=== PATIENT | female | born 1985 | race Caucasian/White ===

== ENCOUNTER 2022-02-16 21:44 | Emergency (ER) | payer BC, OTHER ==
[2022-02-16 22:09] VITALS: BP 124/82; PULSE 99; TEMP 98.4; BMI 26.6
[2022-02-16] MEDS ORDERED: DIPHTH,PERTUSS(ACELL),TET 0.5 ML DISP.SYRIN IM ONE ×2 (22:26)
[2022-02-16] MEDS ORDERED: AMOX TR/POT CLAV 500MG/125MG TABLETS (FP) PO ONE (22:27)
[2022-02-16] MEDS ORDERED: AMOX TR/POT CLAV 500MG/125MG TABLETS (FP) ONE (22:29)
== END 2022-02-16 22:47 | disposition home or self-care (01) ==
LOC: FER 21:44
PROC: 3E0234Z Introduction of Serum, Toxoid and Vaccine into Muscle, Percutaneous Approach (ICD-10-PCS; principal; 2022-02-16)
DX: S02.2XXB Fracture of nasal bones, initial encounter for open fracture (principal); W22.8XXA Striking against or struck by other objects, initial encounter
CPT/HCPCS: 70160-TC-FY; 90715; 99284-25